=== PATIENT | female | born 1935 | race Caucasian/White ===

== ENCOUNTER 2023-06-09 12:25 | Emergency (ER) | payer MEDICARE ==
--- NOTE | 2023-06-09 13:37 | ED ---
General Adult HPI - General Stated complaint: SOB,Cough Time Seen by Provider: 06/09/23 13:36 Source: patient, family, RN notes reviewed Mode of arrival: ambulatory Limitations: no limitations - History of Present Illness Initial comments: 87-year-old female sent emergency Department with family for evaluation of increasing weakness. Patient is not felt well last 1 week she's had decreased oral intake has had cough and congestion. She contacted her primary care physician advises come emergency department for evaluation. She has had some confusion or possible hallucinations per family. Their concern for possible urinary tract infection, dehydration. - Related Data Allergies Allergy/AdvReac Type Severity Reaction Status Date / Time No Known Allergies Allergy Verified 06/09/23 13:48 Review of Systems ROS Statement: Those systems with pertinent positive or pertinent negative responses have been documented in the HPI. ROS Other: All systems not noted in ROS Statement are negative. General Exam - General Exam Comments Initial Comments: Visual Physical Exam Vital signs reviewed General: Well-appearing, nontoxic, no acute distress. Head: Normocephalic, atraumatic Eyes: PERRLA, EOMI ENT: Airway patent Chest: Nonlabored breathing Skin: No visual rash, normal skin tone Neuro: Alert and oriented 3 Musculoskeletal: No gross abnormalities Course Vital Signs 06/09/23 13:48 Temperature 97 F L Pulse Rate 74 Respiratory 16 Rate Blood Pressure 129/73 O2 Sat by Pulse 97 Oximetry EKG Findings - EKG Results: EKG: interpreted by CHARBEL DELEONL, sinus rhythm Medical Decision Making - Medical Decision Making I completed the quick note portion of this chart signed Michael Izquierdo PA-C Patient left AGAINST MEDICAL ADVICE from the waiting room. Chest x-ray interpreted by me showing evidence of cardiomegaly no other acute process - Lab Data Lab Results 06/09/23 Range/Units 14:04 Urine Color Yellow Urine Appearance Clear (Clear) Urine pH 5.5 (5.0-8.0) Ur Specific [place] 1.016 (1.001-1.035) Urine Protein Trace H (Negative) Urine Glucose (UA) Negative (Negative) Urine Ketones Negative (Negative) Urine Blood Negative (Negative) Urine Nitrite Negative (Negative) Urine Bilirubin Negative (Negative) Urine Urobilinogen <2.0 (<2.0) mg/dL Ur Leukocyte Esterase Moderate H (Negative) Urine RBC 1 (0-5) /hpf Urine WBC 22 H (0-5) /hpf Ur Squamous Epith Cells 1 (0-4) /hpf Urine Bacteria Rare H (None) /hpf Hyaline Casts 6 H (0-2) /lpf Urine Mucus Rare H (None) /hpf Disposition Clinical Impression: Weakness Disposition: LEFT AGAINST MEDICAL ADVICE Referrals: Kendell Johansen MD [Primary Care Provider] - 1-2 days
[2023-06-09 13:58] VITALS: BP 129/73; PULSE 74; RESP 16; TEMP 97
--- NOTE | 2023-06-09 14:17 | XR ---
EXAMINATION TYPE: XR chest 2V DATE OF EXAM: 06/09/2023 COMPARISON: NONE HISTORY: Difficulty in breathing. TECHNIQUE: Frontal and lateral views of the chest are obtained. FINDINGS: Pectus excavatum deformity on lateral view. There is no focal air space opacity, pleural ef fusion, or pneumothorax seen. The cardiac silhouette size is mildly enlarged. Surgical clips in the left hilar region are present. The osseous structures are intact. IMPRESSION: Mild cardiomegaly without acute pulmonary process.
[2023-06-09 16:01] LABS: Appearance,Urine Clear (Clear); Bacteria,Urine Rare /hpf; Bilirubin,Urine Negative (Negative); Blood,Urine Negative (Negative); Color,Urine Yellow; Glucose,Urine (UA) Negative (Negative); Hyaline Casts,Urine 6 /lpf (0-2); Ketones,Urine Negative (Negative); Leukocyte Esterase,Urine Moderate (Negative); Mucus,Urine Rare /hpf; Nitrite,Urine Negative (Negative); PH, Urine 5.5 (5.0-8.0); Protein,Urine Trace (Negative); RBC,Urine 1 /hpf (0-5); Specific Gravity,Urine 1.016 (1.001-1.035); Squamous Epithelial Cell,Urine 1 /hpf (0-4); Urobilinogen,Urine <2.0 mg/dL (<2.0); WBC,Urine 22 /hpf (0-5)
== END 2023-06-09 14:10 | disposition left against medical advice (07) ==
LOC: EC 12:25
DX: I51.7 Cardiomegaly (principal); R53.1 Weakness; Z53.29 Procedure and treatment not carried out because of patient's decision for other reasons
CPT/HCPCS: 71046; 81001; 99284